=== PATIENT | male | born 1950 | race Caucasian/White ===

== ENCOUNTER 2016-08-17 14:46 | Inpatient (IN) | payer BC ==
[~2016-08-17] VITALS: Ht 182.9 cm; Wt 86.4 kg
--- NOTE | ~2016-08-17 | ECH ---
Transthoracic Echocardiography Report (TTE) Demographics Patient Name JOYA DOVE Date of Study 08/21/2016 Patient Number [id number] Visit Number [id number] Date of 1950 Room Number 309 Accession Number [id number] Gender Male Age 66 year(s) Referring Travis Randle MD Skate Maker Francesca Moya Physician RDCS Physician Interpreting Deyanira PAITNO Autocad Operator Physician Caio Supervising Ordering Physician Travis Randle MD, MD/P Nurse Stress Clerk Rating Conclusions Contractility Score Summary Normal Left Ventricular contractility was noted. Summary Extremely limited views available due to patient being on ventilator and supine. The estimated left ventricular ejection fraction is 55%. No significant valvular abnormalities were noted. Recommendation The patient will be given the results of this study by the physician who ordered the exam. Procedure Type of Study TTE procedure:Echo Complete SF. Procedure Date Date: 08/21/2016 Start: 09:06 AM Technical Quality: Limited visualization due to patient immobility. Indications:Cardiac Arrest and Hypertension. Additional Indications:ETOH withdrawl Appropriate Use Criteria: 9 Height: 72 inches Weight: 182 pounds BSA: 2.05 m Rhythm: Within normal limits HR: 96 bpm BP: 119/94 mmHg M-Mode/2D Measurements LV Diastolic Dimension: 4.71 cm LV Systolic Dimension: 2.72 cm LV Septum Diastolic: 0.66 cm LV PW Diastolic: 0.83 cm AO Root Dimension: 2.98 cm LA Dimension: 2.65 cm RV Diastolic Dimension: 2.78 cm LVOT VTI: 10.77 cm RV Base: 3.1 cm RV Mid: 1.9 cm TDI-S': 11 cm/s Doppler Measurements AV Peak Velocity: 1.5 m/s MV Peak E-Wave: 0.46 m/s AV Peak Gradient: 9 mmHg MV Peak A-Wave: 0.51 m/s AV Mean Gradient: 5.5 mmHg MV E/A Ratio: 0.91 LVOT Peak Velocity: 0.9 m/s MV P1/2t: 87.9 msec MV Deceleration Time: 323.2 msec MV Area (PHT): 2.5 cm RA Area: 15.2 cm Findings Left Ventricle The left ventricle is normal in size . Unable to assess diastolic function. Right Ventricle Normal right ventricle structure and function. Left Atrium Left atrium appears to be normal in size. Right Atrium Normal right atrial size. Mitral Valve The mitral valve is not well imaged. Aortic Valve The aortic valve was not well imaged. Tricuspid Valve The tricuspid valve is not well visualized. Pulmonic Valve The pulmonic valve is not well visualized. Pericardial Effusion No evidence of pericardial effusion. Miscellaneous Ascending aorta not visualized. Pleural Effusion No evidence of pleural effusion. Contractility Score LV regional wall motion:(0-Non visualized 1-Normal 2-Hypokinesis 3-Akinesis 4-Dyskinesis 5-Aneurysm) Signature
--- NOTE | ~2016-08-17 | HP ---
ADMIT: 08/17/2016 RM/LOC: 420 [facility] MR#: [id number] [address] [facility] [address] [place] [id number] [place] [address] History and Physical SEX: M AGE: 66 : 1950 DATE OF SERVICE: 08/18/2016 CHIEF COMPLAINT: Fall. HISTORY OF PRESENT ILLNESS: Joya is a 66-year-old, white male, who presented to the [facility] Emergency Department yesterday afternoon after he suffered a ground-level fall onto the back of his head at one of the local pharmacies. He and his were actually from [place], [place], and were here in [place], we getting it tuned up for the year, when they decided to go to [facility] to get some eye drops. Apparently, Joya has been having some discharge from his right eye and they were going to get some eye drops for this. While he was there, he got rather dizzy and fell and landed on the back of his head. He came to the ER for further evaluation. While in the ER, he had a negative head CT and a negative neck CT, but was found to be markedly hypertensive and have a serum potassium down in less than 3 range. He was subsequently admitted for further observation. On further inquiry with his this morning, she notes that Joya has been rather shaky and agitated, he has been sleeping poorly, and has had a tremor for the last 2 to 3 days. He has also complained of being somewhat dizzy and his balance has been off. He is not normally like this. Several of his admission labs are suggestive for chronic alcohol use and dependence and on further inquiry, it was revealed that his last drink was approximately 48 to 72 hours prior to his fall and his admission. PAST MEDICAL HISTORY: Remarkable for hypertension, though he is noncompliant with this. Apparently, he is supposed to be on some blood pressure medicine, they are not sure what this is, but he stopped it about 3 months ago. ALLERGIES: NO KNOWN MEDICAL ALLERGIES. MEDICATIONS: None. SOCIAL HISTORY: Joya admits to drinking a couple of beers a day and his also noted he is drinking rum and Coke as well. He is not aware about how much he drinks. He also admits to chewing tobacco. There is no recreational drug use. 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 They note their local physician out in [facility] and they are only just some PAs out there caring for patients. FAMILY HISTORY: Noncontributory. REVIEW OF SYSTEMS: As per HPI. All others reviewed and were negative. PHYSICAL EXAMINATION: VITAL SIGNS: His blood pressure is 188/105, pulse 84, respirations 14, temp 97.7, O2 saturation is 96% on room air. GENERAL: He is somewhat somnolent, not particularly talkative or cooperative. Much of the history is obtained from his today. ADMIT: 08/17/2016 RM/LOC: 420 [facility] MR#: [id number] [facility] [address] [address] [address]YA D[id number] [place] [address] History and Physical SEX: M AGE: 66 : 1950 HEENT: Normocephalic. SKIN: His face has a rather chao appearance consistent with chronic alcohol use and abuse. NECK: Supple. No lymphadenopathy. HEART: Regular rate and rhythm. No murmurs, gallops, or rubs. LUNGS: Fine rales bilaterally throughout. ABDOMEN: Soft, nontender, nondistended. No rebound, guarding, or masses. EXTREMITIES: No cyanosis, clubbing, or edema. LABORATORY AND X-RAY DATA: Head CT done through the Emergency Department yesterday shows no acute intracranial abnormality, severe chronic small vessel ischemic changes, moderate right occipital soft tissue swelling without any underlying fracture. He also has chronic-appearing circumferential mucosal thickening in the left maxillary sinus. Cervical spine CT shows no acute fracture or subluxation from C1 through T2, though he does have some advanced degenerative changes particularly at C5-6 and C6-7. CBC through the ER last night shows a white count of 5.4, hemoglobin of 13.5 with an MCV of 104, and a platelet count of 150. UA is without clinically significant abnormalities. CMP done through the ER shows a creatinine of 1.5, GFR of 48, and a potassium of 2.7. Drugs of abuse screen was negative. After oral replacement in the ER, his potassium several hours later was 2.6, an additional potassium was given. This morning, his sodium was 139, potassium was 2.9, again this is after attempts to replace this with IV and oral replacement. It should be noted that his total cholesterol is 174, his HDLs are 135, his LDLs are 26. ASSESSMENT: 1. Alcohol abuse and dependence with acute alcohol withdrawal syndrome. 2. Fall. 3. Macrocytic anemia. 4. Hypokalemia. 5. Hypertension. 6. Acute right-sided conjunctivitis of the eye. 7. Chronic tobacco abuse. ADMIT: 08/17/2016 RM/LOC: 420 [facility] MR#: [id number] [facility] [address] [address] JOYA DOVE [id number] [place] [address] History and Physical SEX: M AGE: 66 : 1950 PLAN: Plan for Joya will be to start him on a CIWA protocol. We are going to start replacing his potassium. I have also ordered orders to check a mag and a phos, and we will replace those as necessary as well. I suspect it will be low. I have asked for a Social Work consult and ADTC consult. We will start him on Polytrim for his eye. We will also try and obtain records on what blood pressure medicine he should be on. I advised he and his that I strongly suspect that he has a bigger problem with alcohol than he lets on and that much of what I am seeing on his labs are strongly suggestive for chronic alcohol abuse problem. With his shakes and his agitation, I suspect he is probably also withdrawing. Further management will be dependent on his clinical course. Angel Robles MD/ nazia JOB #: [id number] CC: Angel Robles, Attending Physician Angel Robles, Family Physician
--- NOTE | 2016-08-23 08:47 | ER ---
ADMIT: 08/17/2016 RM/LOC: 420 [facility] MR#: [id number] [address] [address] [place], [place] [address], [place] [address] Emergency Room Report SEX: M AGE: 66 : 1950 DATE: 08/17/2016 HISTORY OF PRESENT ILLNESS: A 66-year-old patient was at [employer] trying to get some medication for his right eye infection or irritation. He suddenly felt weak in his legs and went straight back down to the ground where he hit his head sustaining a very small laceration. He also complained of pain in his neck. He is a little combative after he was dropped in the ER by the ambulance. He states he has not taken his blood pressure medications for 10 years now, he is noncompliant. REVIEW OF SYSTEMS: Otherwise negative. He is a little combative. PAST MEDICAL HISTORY: Hypertension. SOCIAL HISTORY: He chews tobacco. ALLERGIES: HE HAS NO ALLERGIES. PHYSICAL EXAMINATION: VITAL SIGNS: Blood pressure is 188/136 with a heart rate of 131, respirations 18, and temp is 100.2. GENERAL: Moderately anxious, combative, alert only to place and person and not situation. Motor is intact. No weakness. PSYCHIATRIC: Normal. NECK: Supple, but as I did the posterior cervical neck examination found some areas of tenderness, we put him on a C-collar after we got verification that the C-spine is within normal limits. HEENT: The right eye does have some thick discharge and decreased lubrication. RESPIRATIONS: No distress. Breath sounds are normal. CVS: Tachycardic. ABDOMEN: Nontender. SKIN: Scalp laceration less than 1.0 cm in the occipital head. EXTREMITIES: Nontender. reports him not being well at all for about a week. LABORATORY DATA: CBC within normal limits, hemoglobin of 13.5, and hematocrit is 31.0. Chemistry; potassium 2.7, glucose 103, creatinine is 1.5, and GFR is 48. Hyaline casts in the urine, protein 1+, urobilinogen 4.0. Toxicology negative. CT of the neck, no fracture, but advanced DJD C5-C6, C6-C7, severe chronic small vessel ischemic changes, occipital tissue swelling, no fracture, and chronic mucosal thickening, left maxilla. CLINICAL IMPRESSION: 1. Hypertension, uncontrolled. 2. Hypokalemia. ADMIT: 08/17/2016 RM/LOC: 420 [facility] MR#: [id number] [address] [address] [place] [address] Emergency Room Report SEX: M AGE: 66 : 1950 3. Fall. 4. Laceration to scalp. 5. Weakness, legs. The patient got started on IV fluids. We did give him labetalol and potassium chloride. He also received 1 mg Ativan IV and Zofran. His urine looked pretty benign except for the reported findings. EKG is a rate 94, sinus rhythm with prolonged QT interval. Dr. Dickson was notified. Dr. Robles, city call, was contacted for orders. The patient verbalized understanding. at bedside. He will be admitted. He received some saline for his right eye and let Dr. Robles decide what else he needs to prescribe for his eye discomfort. HAVEN Myers / Roberto Dickson MD / jenniferl JOB #: [id number] CC: Angel Robles MD, Attending Physician Angel Robles MD, Family Physician
--- NOTE | 2016-08-24 11:04 | CO ---
ADMIT: 08/20/2016 RM/LOC: 309 [facility] MR#: [id number] [address] [address] JOYA DOVE [address] [place] [address] Consultation SEX: M AGE: 66 : 1950 DATE OF CONSULTATION: 08/22/2016 ATTENDING PHYSICIAN: Angel Robles CONSULTING PHYSICIAN: Floyd East MD REASON FOR CONSULTATION: Acute kidney injury. HISTORY OF PRESENT ILLNESS: The patient is a 66-year-old gentleman, who was recently admitted to the hospital 5 days ago. This was after a fall and syncope at a local pharmacy. He was noted to be hypokalemic at that time. He had an acute kidney injury with a creatinine of around 1.5. This was prerenal in etiology based on his urine studies. With supportive care, his kidney function did improve to 1.0. However, over the last 48 hours, he has noted there has been worsening in his serum creatinine along with decreased urine output. While he was up on the tele floor, he had PEA arrest and that is thought to be medication induced. There is also suspicion of aspiration pneumonia/pneumonitis. He is currently intubated and his sedation is being weaned off. His is at his bedside. He is able to answer questions and move his extremities. His notes that he has a history of hypertension and possibly hypothyroidism, but he has not been taking any medications for the last 4 years or so. His most recent creatinine this morning is 2.7. Urine output over the last 24 hours has been around 370 mL. Then, he is currently making about 10 mL of urine an hour. He was on pressor support, and he has been off pressors since last night. REVIEW OF SYSTEMS: Unobtainable secondary to the patient condition. PAST MEDICAL HISTORY: Hypertension, hypothyroidism, and alcohol abuse. ALLERGIES: NO KNOWN DRUG ALLERGIES. MEDICATIONS: Reviewed in the chart. SOCIAL HISTORY: He is . Lives with his . There is a history of alcohol dependence. As per the chart, he chews tobacco as well. FAMILY HISTORY: No family history of chronic kidney disease or renal replacement therapy. PHYSICAL EXAMINATION: VITAL SIGNS: Temperature 96.7 Fahrenheit, pulse 88, blood pressure 157/77, saturating 98% on 30% FiO2. GENERAL: He is intubated, but is awake and is moving his extremities. HEENT: Head is nontraumatic and normocephalic. Extraocular movements are intact. CHEST: Decreased breath sounds bilaterally. CVS: Regular rhythm. S1, S2 heard. No rubs, murmurs, or gallops. ABDOMEN: Soft and nontender. EXTREMITIES: No edema. ADMIT: 08/20/2016 RM/LOC: 309 [facility] MR#: [id number] [address] [address] [address] [place] [address] Consultation SEX: M AGE: 66 : 1950 SKIN: No rash or nodules. NEUROLOGIC: He is awake and is able to move all his extremities. He responds to verbal stimulus. MUSCULOSKELETAL: Major joints within normal limits. LABORATORY DATA: Reviewed. BMP with sodium 139, potassium 3.3, creatinine 2.7, CO2 is 19, hemoglobin 11.4, magnesium 2.2, albumin 2.1, calcium 8.2. Most recent ABG with a pH of 7.385, pCO2 of 31.3 and PO2 of 104.4. Urinalysis upon admission, had 1+ protein, negative blood, negative leukocyte esterase. ASSESSMENT AND PLAN: Acute kidney injury-this is most likely secondary to ischemic acute tubular necrosis. There is no indication for renal replacement therapy at this time, but he may need it moving forward. For the time being, continue supportive care, monitor hemodynamics and avoid nephrotoxins such as NSAIDs, IV contrast, or Fleets enemas. Monitor urine output, kidney function as well as electrolytes and acid-base status moving forward. Thank you for this consultation. Please do not hesitate to contact with any questions. Floyd East MD/ nazia JOB #: [id number] CC: Angel Robles, Attending Physician Angel Robles, Family Physician
[2016-08-27] MEDS ORDERED: COREG DPS6.25 MG PO (13:14)
[2016-08-27] MEDS ORDERED: DUONEB DPS3 ML IH (13:14)
[2016-08-27] MEDS ORDERED: LOVENOX DP40 MG/0.4 SQ (13:15)
[2016-08-27] MEDS ORDERED: LEVAQUIN DPS25 MG/ML NG (13:15)
[2016-08-27] MEDS ORDERED: NORVASC DPS10 MG NG (13:15)
[2016-08-27] MEDS ORDERED: [UNRECOGNIZED DRUG - OTHER] IV (13:16)
--- NOTE | 2016-09-01 19:20 | CB ---
ADMIT: 08/20/2016 RM/LOC: 309 [facility] MR#: [id number] [address] [address] [place], [place] [address], [place] [address] Code Blue Report SEX: M AGE: 66 : 1950 Corrected: 08/28/2016 1257 njv DATE: 08/20/2016 Patient is a 66-year-old male, 3rd day admission for alcohol withdrawal syndrome. The patient was tachycardic at shift change. Found to be having agonal respirations. Code was called. CPR was started immediately upon my arrival. The patient had a PEA rhythm. First amp of epinephrine had just been administered. Patient had return of spontaneous circulation after the second amp of epinephrine. The patient was intubated with 7.5 Shiley, first passed with GlideScope without difficulty. Chest x-ray showed no abnormality. Endotracheal tube above the elie. Initial blood gases showed pH 7.0, pCO2 of 92 and a PO2 of 82. The patient was placed on ventilator with hyperventilation settings. I-STAT of 6, showed no gross abnormalities. Suspect patient had alcohol withdrawal seizure, even though he was placed on alcohol withdrawal precautions. Dr. Barth and Dr. Multani were consulted. Dr. Multani assumed care in ICU. Randall Gayle MD/ jenniferl JOB #: [id number] CC: Angel Robles, Attending Physician Angel Robles, Family Physician Corrected: 08/28/2016 1257 njv
--- NOTE | 2016-09-03 08:25 | DS ---
ADMIT: 08/20/2016 RM/LOC: 309 [facility] MR#: [id number] [address] [address] [address] [place] [address] Discharge Summary SEX: M AGE: 66 : 1950 ADMISSION DATE: 08/20/2016 DISCHARGE DATE: 08/26/2016 ADMITTING DIAGNOSES: 1. Fall with a scalp laceration. 2. Alcohol abuse dependence with acute alcohol withdrawal syndrome. 3. Microcytic anemia. 4. Hypokalemia. 5. Poorly-controlled hypertension. 6. Acute right-sided conjunctivitis. 7. Chronic tobacco abuse. DISCHARGE DIAGNOSES: 1. Alcohol withdrawal syndrome. 2. Altered mental status status post cardiac arrest 08/20/2016. 3. Encephalopathy. 4. Status post cardiac arrest with successful resuscitation and intubation 08/20/2016. 5. Bilateral lacunar infarct status post cardiac arrest. 6. Acute kidney injury. 7. Poor p.o. (by month) intake and nutrition. 8. Poorly-controlled hypertension. 9. Aspiration pneumonitis day 6 of IV (intravenous) antibiotics. 10.Obstructive sleep apnea. 11.Hypercapnic respiratory failure, resolved. 12.Macrocytic anemia secondary to vitamin B12 and folate deficiency. 13.Hypokalemia, resolved. 14.Hypophosphatemia, resolved. 15.Hypomagnesemia, resolved. 16.Acute right-sided conjunctivitis, resolved. 17.Tobacco abuse. CONSULTATIONS: 1. Mo Multani MD with Critical Care Management consulted on 08/20/2016 for vent management and post cardiac arrest, ICU comanagement. 2. Floyd East MD, Nephrology consulted 08/22/2016 for acute kidney injury status post cardiac arrest. PROCEDURES: Head CT performed on 08/19/2016 shows no acute intracranial abnormality, stable-appearing severe chronic small vessel ischemic changes along with mild generalized age-related cerebral atrophy. Abdominal ultrasound dated August 19 showed mild hepatomegaly with findings suggesting diffuse fatty infiltration of the liver, no cholelithiasis or sonographic evidence of acute cholecystitis. Bilateral venous Doppler performed on 08/21/2016 showed no findings to suggest deep venous thrombosis of the right or left lower extremities. Transthoracic echocardiogram performed on 08/21/2016 showed an LVEF 55%, no significant valvular abnormalities. MRI of the brain 08/24/2016 showed multiple bilateral punctate areas of restricted diffusion compatible with lacunar infarcts, no large territorial infarct and ADMIT: 08/20/2016 RM/LOC: 309 [facility] MR#: [id number] [address] [address] [facility] [address] [place] [address] Discharge Summary SEX: M AGE: 66 : 1950 severe brain volume loss, nonspecific white matter changes. HISTORY AND PHYSICAL EXAMINATION: Joya is a 66-year-old white male, who presented to [facility] Emergency Department in the evening hours of 08/17/2016 after he suffered a ground-level fall onto the back of his head at one of the local pharmacies. He and his were actually from [place], [place], and were here in [place] getting an RV tuned up for the year [facility] some discharge from Joya's right eye. While he was there, he got rather dizzy and fell and landed on the back of his head. He came to the ER for further evaluation. While in the ER, he had a negative head CT and a negative neck CT but was found to be markedly hypertensive and had a serum potassium down in the less than 3 range. He was subsequently admitted for further observation and replacement of his potassium. He was seen in the behavioral school counselors hours of 08/18/2016, and on further inquiry with his , it was found that Joya had been rather shaky and agitated, had been sleeping poorly and had a tremor for the last 2-3 days. He was approximately 48 hours from his last drink. It was discovered that he was drinking an upwards of a 3rd of an L of hard alcohol plus beer every day and then really did not eat much in the way of food. He had begun to show some evidence of tremors and that his balance had been off. Overnight labs showed markedly elevated HDLs, low vitamin and B12 levels, and macrocytic anemia, and physical exam findings strongly suggestive of chronic alcohol abuse and dependence. His past medical history was remarkable for hypertension and noncompliance with medications. Apparently he was supposed to be on thyroid medication and diltiazem but had stopped all of his medications several months prior. Interestingly a TSH done during his hospitalization was normal. On his initial exam, his blood pressure was 188/105, pulse was 84, respirations 14, temperature 97.7, O2 saturation was 96% on room air. He was somewhat somnolent but awake. He was not particularly talkative or cooperative mood. Much of the history was obtained from his . Again, his head CT through the ER was unremarkable. He did have alicia placed for an occipital laceration. Neck CT was negative for any fractures. His creatinine was 1.5. Admission potassium initially was 2.6. This was replaced orally and intravenously in the overnight. HOSPITAL COURSE: After my initial evaluation, I started Joya on an alcohol withdrawal protocol including oral, IV, and IM Valium. He was started on thiamine, folic acid, a multivitamin, and his magnesium, phosphorus and potassium levels checked and replaced. Over the ensuing 48-72 hours, he became increasingly agitated, was pulling out his IV, refusing to take oral medications, and had markedly elevated blood pressures despite several vasoactive intravenous medications to try and lower his blood pressures. In the overnight period of 08/20/2016 into 08/21/2016, he suffered an acute ADMIT: 08/20/2016 RM/LOC: 309 [facility] MR#: [id number] [facility] [address] [place] [id number] [place] [address] Discharge Summary SEX: M AGE: 66 : 1950 cardiac arrest. He required one round of CPR and was subsequently intubated, placed on the ventilator and sent to the ICU. While in the ICU, it was found that he had an acute kidney injury. He had bumped his baseline creatinine from 1.5 up to 2.8. While he was on the ventilator, he had no G-tube placed. He was in TEDs and SCDs. He was placed on Pepcid for GI prophylaxis and started on Lovenox for DVT prophylaxis. It was felt that the cause of his code was secondary to aspiration pneumonitis and hypercapnic respiratory failure. Joya was subsequently able to be extubated on 08/22/2016 and all sedating medications were discontinued as he remained very somnolent following the cardiac arrest. Following extubation and discontinuation of his sedative hypnotic medications, oJya remained very sleepy and drowsy. Attempts to place a Dobhoff were met with him pulling the Dobhoff out. We were only able to get his swallow evaluated on 08/25/2016, but by 08/26/2016 he was more somnolent again, and it was felt unsafe to try to give him anything orally at the time. His acute kidney injury, creatinine stabilized at about 2.4 at the time of admission. He remained encephalopathic and somnolent throughout his ICU stay following extubation. Following his code, he was started on cefepime, vancomycin and Levaquin for aspiration pneumonitis. The cefepime and vancomycin were discontinued. The Levaquin was day 6 at the time of discharge. By the morning of 08/26/2016, with us making very little headway on improving Joya's level of consciousness, it was felt that he would need to be evaluated by a neurologist and/or a psychiatrist. As such, we do not have any neurology coverage or psychiatry coverage in this hospital and a decision was made to transfer him to [facility] for neurology consultation. I spoke with Dr. Martinez, one of the hospitalists at [facility] in [place], regarding transfer and she has agreed to accept Joya. Joya will be transferred via ground [facility]S ambulance. He will be maintained on his current medications until he can be evaluated by Dr. Martinez and the neurologist in [place]. Angel Robles MD/ romulo JOB #: [id number] CC: Angel Robles MD, Attending Physician Angel Robles MD, Family Physician
--- NOTE | 2016-10-22 17:24 | CO ---
ADMIT: 08/20/2016 RM/LOC: 309 [facility] MR#: [id number] [address] [address] JOYA LEARY [address] [place] [address] Consultation SEX: M AGE: 66 : 1950 DATE OF CONSULTATION: 08/20/2016 ATTENDING PHYSICIAN: Angel Robles CONSULTING PHYSICIAN: Mo Multani MD REASON FOR CONSULTATION: Medical management while in the Intensive Care Unit. HISTORY OF PRESENT ILLNESS: Mr. Leary is a gentleman who is 66 and presented after a fall and tremors, was being treated for what appears to be an alcohol withdrawal and became progressively more obtunded over his course in the hospital, who was transferred to the ICU where the patient did code. The patient did get a round of CPR, was emergently intubated and placed on a ventilator and was found to be normotensive post this cardiac arrest. PAST MEDICAL HISTORY: Hypertension. ALLERGIES TO MEDICATIONS: No known medical allergies noted. HOME MEDICATIONS: None. SOCIAL HISTORY: The patient is . He has been for the past 10 years. His current states the patient is probably sneaking drinks for the last few years, however, he is not exactly sure how much was apparently drinking rum and coke and beers daily. Otherwise, admits to chewing tobacco with known recreational drug abuse. FAMILY HISTORY: Unknown. REVIEW OF SYSTEMS: Unknown. The patient is intubated and unresponsive. PHYSICAL EXAMINATION: VITAL SIGNS: Temperature of 100.9, pulse of 96, respiratory rate of 16 with blood pressure of 95/45, saturating 89% on 100% FiO2. GENERAL: The patient is intubated, is nonsedated, but nonresponsive. His pupils are equally round and reactive to light. The patient appears to be tachypneic with respiratory rate up into the 30s at the time of the exam. The patient follows no commands and does not localize any pain, however, he does have a positive cough. His pupils are 3 mm and equally round and reactive to light and brisk. HEART: Regular rate and rhythm. No murmurs, gallops, or rubs. CHEST: His chest is clear with no wheezes, rhonchi, or rales. ABDOMEN: His abdomen is soft, nontender, and nondistended. He has positive bowel sounds. HEENT: Appears to be normocephalic and atraumatic. EXTREMITIES: Show no signs of clubbing, cyanosis, or edema. DIAGNOSTIC STUDIES: BMP shows sodium of 136, potassium of 3.2, chloride of 97, CO2 of 25, his current BUN is 9, and his creatinine of 1.0. His phos is ADMIT: 08/20/2016 RM/LOC: 309 [facility] MR#: [id number] [address] [address] [address] [id number] [place] [address] Consultation SEX: M AGE: 66 : 1950 4.5 and mag of 2.2. His CBC shows a white blood cell count of 10.6, hemoglobin of 14.7, and platelet count of 189. His shows hemoglobin of 17, hematocrit of 50. SMA 134, his current potassium of 4.1, glucose of 180. His immediate ABG following his code shows pH of 7.063, pCO2 of 96, and pO2 of 83. ASSESSMENT AND PLAN: 1. Acute hypoxemia and hypercarbic respiratory failure. 2. Lactic acidosis. 3. Status post cardiac arrest, likely secondary to respiratory failure. 4. Acute alcohol withdrawal. 5. Aspiration pneumonitis. PLAN: 1. Given the patient's hypoxemic hypercarbic respiratory failure, we will increase the patient's positive end-expiratory pressure from his current 5 to 10, did try at the bedside and did recruit the patient with PEEPs of up to 20 with his optimal PEEP being titrated at the end of the . The patient was at the end of the recruitment saturating 92% on a percent FiO2 and a PEEP of 10 as well as increased his tidal volumes and decreased his respiratory rate given the patient's followup ABG. Also check the patient's lactic acidosis and rule out cardiac or pulmonary embolus as the reason for his cardiac arrest. 2. The current alcohol withdrawal protocol as the patient is currently intubated and nonresponsive. Followup laboratory results as they become available. I spent total of 60 minutes of critical care time with this patient, this included procedural time. I would like to thank the primary team for allowing us to participate in the care of their patient. Mo Multani MD/ nazia JOB #: [id number] CC: Angel Robles, Attending Physician Angel Robles, Family Physician
== END 2016-08-26 09:30 | disposition short-term general hospital (02) | DRG 896 ==
LOC: ER 14:46 → EDBD 14:46 → ER 18:10 → 4PCU 18:10 → 3ICU 18:10 → 4PCU 08-20 13:53 → 3ICU 08-20 21:01 → 4PCU 08-20 21:01 → 3ICU 08-20 21:10
PROVIDERS: ADMIT Family Medicine
PROC: HZ2ZZZZ Detoxification Services for Substance Abuse Treatment (ICD-10-PCS; principal; 2016-08-18)
PROC: 5A1935Z Respiratory Ventilation, Less than 24 Consecutive Hours (ICD-10-PCS; 2016-08-20)
PROC: 0BH17EZ Insertion of Endotracheal Airway into Trachea, Via Natural or Artificial Opening (ICD-10-PCS; 2016-08-20)
PROC: 4A133B1 Monitoring of Arterial Pressure, Peripheral, Percutaneous Approach (ICD-10-PCS; 2016-08-21)
PROC: 02HV33Z Insertion of Infusion Device into Superior Vena Cava, Percutaneous Approach (ICD-10-PCS; 2016-08-21)
PROC: 0B938ZX Drainage of Right Main Bronchus, Via Natural or Artificial Opening Endoscopic, Diagnostic (ICD-10-PCS; 2016-08-21)
PROC: 3E0G76Z Introduction of Nutritional Substance into Upper GI, Via Natural or Artificial Opening (ICD-10-PCS; 2016-08-23)
DX: F10.239 Alcohol dependence with withdrawal, unspecified (principal); J69.0 Pneumonitis due to inhalation of food and vomit; N17.0 Acute kidney failure with tubular necrosis; I63.9 Cerebral infarction, unspecified; J96.01 Acute respiratory failure with hypoxia; J96.02 Acute respiratory failure with hypercapnia; G93.41 Metabolic encephalopathy; D51.9 Vitamin B12 deficiency anemia, unspecified; E83.42 Hypomagnesemia; I46.9 Cardiac arrest, cause unspecified; S01.01XA Laceration without foreign body of scalp, initial encounter; E87.6 Hypokalemia; W18.30XA Fall on same level, unspecified, initial encounter; Y92.512 Supermarket, store or market as the place of occurrence of the external cause; M47.812 Spondylosis without myelopathy or radiculopathy, cervical region; G47.33 Obstructive sleep apnea (adult) (pediatric); D52.9 Folate deficiency anemia, unspecified; E83.39 Other disorders of phosphorus metabolism; I10 Essential (primary) hypertension; H10.31 Unspecified acute conjunctivitis, right eye; F17.220 Nicotine dependence, chewing tobacco, uncomplicated; Z91.14 Patient's other noncompliance with medication regimen